=== PATIENT | male | born 1960 | race Caucasian/White ===

== ENCOUNTER 2024-03-21 14:12 | Outpatient (CLI) | payer MEDICARE, OTHER, SELFPAY ==
--- NOTE | ~2024-03-21 | MR_ITS ---
EXAMINATION: MR knee RT wo con DATE: 03/21/2024 14:54 INDICATION: Medial meniscal tear with anterior and medial right knee pain and swelling post injury wi th palpable pop. TECHNIQUE: Magnetic resonance imaging (MRI) of the right knee was performed without intravenous contr ast. Sequences included coronal PD-weighted FSE, coronal PD-weighted FS FSE, sagittal T2-weighted FS E, sagittal PD-weighted FS FSE and axial PD weighted fat saturated FSE. COMPARISON: None. FINDINGS: Medial compartment: Full-thickness radial tear/avulsion at the posterior root of the medial meniscus. There is intrasubst ance thickening at the junction of the body and posterior horn of the medial meniscus consistent with mucoid degeneration. Articular cartilage is normal. Lateral compartment: Lateral meniscus is normal. Small focus of partial-thickness chondral fissuring along the posterior m argin of the lateral tibial plateau. Patellofemoral compartment: There is partial thickness chondral fissuring involving less than 50% the cartilage thickness at the medial and lateral patellar facets. Deep chondral ulceration with small central subchondral osteophyt e at the central aspect of the trochlear groove and with irregularity and tiny subarticular cystlike changes at the inferior aspect of the medial trochlea. Ligaments and tendons: Anterior and posterior cruciate ligaments are normal. The medial collateral ligament and fibular shirley ateral ligament complex are normal. The extensor mechanism is normal. The visualized medial and later al hamstring tendons as well as the iliotibial band are normal. Fluid: Small right knee joint effusion. No loose osteochondral bodies identified. Osseous/other: Bone alignment is normal. There is prominent marrow edema underlying the medial aspect of the medial tibial plateau where there is subtle linear low signal intensity immediately underlying and paralleli ng the articular cortex which could represent either a subarticular trabecular impaction fracture rel ated to discrete trauma or a more chronic stress fracture related to altered stress distribution resu lting from the meniscal tear. No pathologic marrow replacing process. There is a 2.0 x 1.7 x 0.8 cm o void lesion in the subcutaneous fat on superficial margin of the lateral patellar retinaculum which i s relatively mildly T2 hyperintense. IMPRESSION: 1. Full-thickness radial tear/avulsion at the posterior root of the medial meniscus. 2. Suggestion of a likely small subarticular impaction versus stress fracture along the medial rim of the medial tibial plateau. 3. 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 4. Minimal osteoarthritis and lateral compartments region of moderate grade chondral malacia along th e posterior rim of the lateral tibial plateau. 5. Indeterminate 2.0 x 1.7 x 0.8 cm ovoid saphenous lesion on along the lateral patellar retinaculum, unclear on noncontrast imaging whether solid, complex cystic or vascular. Could consider ultrasound for further evaluation. Reviewed, dictated and finalized at location B. IMPRESSION: 1. Full-thickness radial tear/avulsion at the posterior root of the medial meni scus. 2. Suggestion of a likely small subarticular impaction versus stress fracture a long the medial rim of the medial tibial plateau. 3. Mild patellofemoral osteoarthritis with moderate grade patellar and small re gion of high-grade trochlear chondromalacia. 4. Minimal osteoarthritis and lateral compartments region of moderate grade cho ndral malacia along the posterior rim of the lateral tibial plateau. 5. Indeterminate 2.0 x 1.7 x 0.8 cm ovoid saphenous lesion on along the lateral patellar retinaculum, unclear on noncontrast im
== END 2024-03-21 14:13 ==
PROVIDERS: PCP Orthopaedic Surgery; Visit Provider Orthopaedic Surgery
DX: S83.241A Other tear of medial meniscus, current injury, right knee, initial encounter (principal); X58.XXXA Exposure to other specified factors, initial encounter; M17.11 Unilateral primary osteoarthritis, right knee
CPT/HCPCS: 73721